=== PATIENT | male | born 1970 | race Hispanic/Latino ===

== ENCOUNTER 2021-03-04 08:49 | Observation (INO) | payer OTHER ==
[2021-03-02 12:25] LABS: BASOPHILS # (AUTO) 0.1 (0.0-0.1); BASOPHILS % 0.7 % (0.0-1.0); EOSINOPHILS # (AUTO) 0.3 (0.0-0.4); EOSINOPHILS % 4.3 % (0.0-6.0); HEMATOCRIT 43.6 % (38.2-49.6); HEMOGLOBIN 14.6 g/dL (14.0-18.0); LYMPHOCYTES # (AUTO) 2.8 (1.0-3.2); LYMPHOCYTES % 36.2 % (18.0-39.1); MEAN CORPUSCULAR HEMOGLOBIN 31.1 pg (28-32); MEAN CORPUSCULAR HGB CONC 33.5 g/dL (31-35); MONOCYTES # (AUTO) 0.6 (0.2-0.8); MONOCYTES % 8.1 % (4.4-11.3); NEUTROPHILS # (AUTO) 3.9 (2.1-6.9); NEUTROPHILS % 50.4 % (38.7-80.0); PLATELET COUNT 206 x10e3/uL (140-360); RED BLOOD COUNT 4.69 x10e6/uL (4.3-5.7); RED CELL DISTRIBUTION WIDTH 12.4 % (11.7-14.4)
[2021-03-02 12:42] LABS: ANION GAP 13.3 mmol/L (8-16); CALCIUM 8.9 mg/dL (8.4-10.2); CREATININE, SERUM 0.76 mg/dL (0.72-1.25); POTASSIUM 4.3 mmol/L (3.5-5.1)
[2021-03-02 12:47] LABS: INR 0.88; PROTHROMBIN TIME 12.5 seconds (11.9-14.5)
[2021-03-02 12:48] LABS: PARTIAL THROMBOPLASTIN TIME 27.3 seconds (23.8-35.5)
[~2021-03-04] VITALS: Ht 165.1 cm; Wt 104.3 kg
[~2021-03-04 08:49] MED LIST: ACETAMINOPHEN 1000 MG/100 ML 100 ML IV ONE; IBUPROFEN 800MG/ 200ML 200 ML IV ONE; IBUPROFEN800 MG PO; LIDOCAINE 1% W/EPINEPHRINE 20 ML VIAL ONE; LIPITOR10 MG PO; THROMBIN FOR SOLN 5,000 UNIT VIAL ONE; Vancomycin IV 1 GM VIAL ONE
[2021-03-04] MEDS ORDERED: SODIUM CHLORIDE 0.9% 50ML 100 ML ONE (09:36)
[2021-03-04] MEDS ORDERED: POVIDONE IODINE 0.05% 0.05 % ML PO ONE (11:42)
[2021-03-04] MEDS ORDERED: LIDOCAINE HCL 2% LOCAL INJ 5 ML SDV VIAL INJ ONE (11:42)
[2021-03-04] MEDS ORDERED: PROPOFOL IV EMULSION 10 MG/ML 20 ML VIAL ONE (11:42)
[2021-03-04] MEDS ORDERED: NEOSTIGMINE 1 MG/ML 10ML VIAL ONE (11:42)
[2021-03-04] MEDS ORDERED: GLYCOPYRROLATE INJ 0.2 MG/ML VIAL ONE (11:42)
[2021-03-04] MEDS ORDERED: SEVOFLURANE INHAL SOLN 250 ML PEN BTL ONE (11:42)
[2021-03-04] MEDS ORDERED: DEXAMETHASONE SOD PHOS INJ 4 MG/ML VIAL ONE (11:42)
[2021-03-04] MEDS ORDERED: LIDOCAINE HCL 2% JELLY 5 ML TUBE ONE (11:42)
[2021-03-04] MEDS ORDERED: ROCURONIUM BROMIDE 10 MG/ML 5ML VIAL IV ONE (11:42)
[2021-03-04] MEDS ORDERED: ONDANSETRON HCL INJ 2MG/ML 2ML 2 MG/ML VIAL ONE (11:42)
[2021-03-04] MEDS ORDERED: HYDROCODON-ACE1 EA12 PO (12:06)
[2021-03-04] MEDS ORDERED: ONDANSETRON HCL INJ 2MG/ML 2ML 2 MG/ML VIAL IV PRN (12:15)
[2021-03-04] MEDS ORDERED: ACETAMINOPHEN 325 MG TAB PO PRN (12:15)
[2021-03-04] MEDS ORDERED: MAGNESIUM/ALUMINUM/SIMETHICONE 30 ML UDC PO PRN (12:15)
[2021-03-04] MEDS ORDERED: HYDROMORPHONE 2MG/ML 2 MG/ML ML IV PRN (12:15)
[2021-03-04] MEDS ORDERED: PROMETHAZINE HCL (IM) 25 MG/ML VIAL IM PRN (12:15)
[2021-03-04] MEDS ORDERED: MORPHINE SULFATE 5 MG/ML VIAL IM PRN (12:15)
[2021-03-04] MEDS ORDERED: IBUPROFEN 400 MG TAB PO PRN (12:15)
[2021-03-04] MEDS ORDERED: ACETAMINOPHEN 1000 MG/100 ML 100 ML IV ONE (12:31)
[2021-03-04] MEDS ORDERED: FENTANYL CITRATE/PF 100MCG/2 ML INJ ONE ×2 (12:40→13:58)
[2021-03-04] MEDS ORDERED: HYDROMORPHONE 1MG/1ML INJ ONE (13:32)
[2021-03-04] MEDS ORDERED: MIDAZOLAM HCL 2 MG/2 ML VIAL ONE (13:58)
[2021-03-04] MEDS ORDERED: NICOTINE 21 MG/EA PATCH TOP PRN (15:15)
[2021-03-04 16:22] VITALS: BP 126/68
[2021-03-04] MEDS: LACTATED RINGER'S 1,000 ML IV SCH ×2 (16:59→20:35)
[2021-03-04] MEDS: Cefazolin 1 GM in SODIUM CHLORIDE 0.9% 50ML 50 ML IV SCH (18:00)
[2021-03-04] MEDS: OXYCODONE/ACETAMINOPHEN 5-325 1 EACH TABLET PO PRN (19:15)
[2021-03-04 20:00] VITALS: BP 131/69
[2021-03-04 20:25] VITALS: BP 131/69
[2021-03-04] MEDS: CARISOPRODOL 350 MG TAB PO PRN (20:25)
[2021-03-04] MEDS ORDERED: ATORVASTATIN 40 MG TAB PO SCH (21:00)
[2021-03-04] MEDS ORDERED: ZOLPIDEM TARTRATE 5 MG TAB PO PRN (21:00)
[2021-03-05] VITALS: BP 126/53
[2021-03-05] MEDS: Cefazolin 1 GM in SODIUM CHLORIDE 0.9% 50ML 50 ML IV SCH ×2 (01:27→09:13)
[2021-03-05] MEDS: OXYCODONE/ACETAMINOPHEN 5-325 1 EACH TABLET PO PRN ×2 (01:30→07:10)
[2021-03-05] MEDS: CARISOPRODOL 350 MG TAB PO PRN ×2 (01:31→07:11)
[2021-03-05 04:00] VITALS: BP 131/57
[2021-03-05] MEDS: LACTATED RINGER'S 1,000 ML IV SCH (04:55)
[2021-03-05 07:27] VITALS: BP 133/82
[2021-03-05 07:30] VITALS: BP 133/82
== END 2021-03-05 11:10 | disposition home or self-care (01) ==
LOC: OR 08:49 → PACU V 12:03 → MED/SURG 15:27
PROVIDERS: ADMIT Neurological Surgery; ATTEND Neurological Surgery
DX: M48.062 Spinal stenosis, lumbar region with neurogenic claudication (principal); E78.5 Hyperlipidemia, unspecified; Z01.818 Encounter for other preprocedural examination; E66.9 Obesity, unspecified; Z68.38 Body mass index [BMI] 38.0-38.9, adult
CPT/HCPCS: 36415; 63047; 63048; 71046; 72020; 80048; 85025; 85610; 85730; 86850; 86900; 88304; 88311; 93005; G0378 ×2; J0131; J0690 ×2; J1100; J1170; J2001 ×2; J2250; J2405; J2704; J2710; J3010; J3370; J7121